=== PATIENT | male | born 1990 | race Caucasian/White ===

== ENCOUNTER 2020-03-02 03:54 | Emergency (ER) | payer OTHER ==
[2020-03-02 04:02] VITALS: TEMP 98.8
[2020-03-02] MEDS ORDERED: SODIUM CHLORIDE 0.9% 1,000 ML IV STA (04:07)
[2020-03-02] MEDS ORDERED: DIPH,PERTUS(ACELL)TETVAC-LF 0.5 ML VIAL IM ONE (04:07)
[2020-03-02 04:26] LABS: Basophils # (A) 0.1 k/uL (0-0.2); Basophils % (A) 1 %; Eosinophils # (A) 0.3 k/uL (0-0.7); Eosinophils % (A) 2 %; HCT 46.5 % (39.0-53.0); HGB 15.9 gm/dL (13.0-17.5); Lymphocytes # (A) 1.4 k/uL (1.0-4.8); Lymphocytes % (A) 9 %; MCH 30.6 pg (25.0-35.0); MCHC 34.3 g/dL (31.0-37.0); MCV 89.2 fL (80.0-100.0); Monocytes # (A) 0.5 k/uL (0-1.0); Monocytes % (A) 3 %; Neutrophils # (A) 13.4 k/uL (1.3-7.7); Neutrophils % (A) 85 %; Platelet Count 395 k/uL (150-450); RBC 5.21 m/uL (4.30-5.90); RDW 12.1 % (11.5-15.5); WBC 15.9 k/uL (3.8-10.6)
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
[2020-03-02 04:30] LABS: INR 0.9 (<1.2); Partial Thromboplastin Time 23.1 sec (22.0-30.0); Prothrombin Time 9.9 sec (9.0-12.0)
[2020-03-02 04:31] LABS: ALT 60 U/L (4-49); AST 46 U/L (17-59); African American GFR (CKD) >90 (>60 ml/min/1.73 sqM); Albumin 5.4 g/dL (3.5-5.0); Alkaline Phosphatase 98 U/L (38-126); Anion Gap 14 mmol/L; Blood Urea Nitrogen 11 mg/dL (9-20); Calcium 9.6 mg/dL (8.4-10.2); Carbon Dioxide 22 mmol/L (22-30); Chloride 106 mmol/L (98-107); Glucose 115 mg/dL (74-99); Non-African American GFR(CKD) 79 (>60 ml/min/1.73 sqM); Sodium 142 mmol/L (137-145); Total Bilirubin 0.5 mg/dL (0.2-1.3); Total Protein 8.8 g/dL (6.3-8.2)
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
--- NOTE | 2020-03-02 04:44 | XR ---
EXAMINATION TYPE: XR pelvis AP view DATE OF EXAM: 03/02/2020 COMPARISON: NONE HISTORY: Pain TECHNIQUE: Single view FINDINGS: Pelvic ring is intact. Proximal femurs and hip joints are intact. Sacroiliac joints appear normal. IMPRESSION: Negative pelvis x-ray exam.
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
[2020-03-02 04:48] LABS: Alcohol 204 mg/dL
[2020-03-02] MEDS ORDERED: MORPHINE SULFATE 4 MG/ML SYRINGE IVP STA (04:58)
[2020-03-02 07:11] VITALS: BP 117/69; PULSE 89; RESP 16
== END 2020-03-02 06:45 | disposition other institution (70) ==
LOC: EC 03:54
DX: S02.19XA Other fracture of base of skull, initial encounter for closed fracture (principal); S43.085A Other dislocation of left shoulder joint, initial encounter; S01.301A Unspecified open wound of right ear, initial encounter; M79.89 Other specified soft tissue disorders; F10.129 Alcohol abuse with intoxication, unspecified; F17.200 Nicotine dependence, unspecified, uncomplicated; Y04.2XXA Assault by strike against or bumped into by another person, initial encounter; Y90.7 Blood alcohol level of 200-239 mg/100 ml
CPT/HCPCS: 36415; 80053; 85025; 85610; 85730; 72170; 71045; 72125; 70486; 70450; 90715; 99291; 96365; 96375; 96361; 90471; 23650; G0480; J2270; J0690; 80320

== ENCOUNTER 2020-03-11 10:03 | Emergency (ER) | payer OTHER ==
[2020-03-11 10:11] VITALS: TEMP 97.8
[2020-03-11] MEDS ORDERED: MORPHINE SULFATE 4 MG/ML SYRINGE IM STA (10:36)
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
[2020-03-11] MEDS ORDERED: ONDANSETRON 4 MG/2 ML VIAL IVP STA ×2 (11:06→12:06)
--- NOTE | 2020-03-11 11:10 | XR ---
EXAMINATION TYPE: XR shoulder complete LT DATE OF EXAM: 03/11/2020 COMPARISON: NONE HISTORY: Pain TECHNIQUE: Three views are submitted. FINDINGS: The osseous structures are intact. There is anterior dislocation of the humeral head. IMPRESSION: 1. Anterior dislocation of the humeral head.
[2020-03-11] MEDS ORDERED: PROPOFOL 10 MG/ML 20 ML VIAL IV ONE (11:33)
[2020-03-11] MEDS ORDERED: LORazepam 2 MG/ML INJ IV STA (11:41)
[2020-03-11] MEDS ORDERED: SODIUM CHLORIDE 0.9% 1,000 ML IV ONE (11:41)
[2020-03-11] MEDS ORDERED: SODIUM CHLORIDE 0.9% 1,000 ML IV SCH (11:45)
[2020-03-11] MEDS ORDERED: ETOMIDATE 2 MG/ML 10 ML VIAL IVP STA (12:31)
--- NOTE | 2020-03-11 12:59 | XR ---
EXAMINATION TYPE: XR shoulder limited LT DATE OF EXAM: 03/11/2020 CLINICAL HISTORY: Left shoulder dislocation today. TECHNIQUE: Single view of left shoulder is obtained after reduction. COMPARISON: Left shoulder x-ray earlier today. FINDINGS: There is improved alignment of humeral head relative to glenoid cavity after reduction. No acute fracture is seen. Visualized ribs are intact. IMPRESSION: Interval successful reduction of anterior humeral head dislocation.
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
[2020-03-11 13:52] VITALS: BP 131/104; PULSE 84; RESP 18
== END 2020-03-11 14:00 | disposition home or self-care (01) ==
LOC: EC 10:03
DX: M24.412 Recurrent dislocation, left shoulder (principal); Z87.891 Personal history of nicotine dependence
CPT/HCPCS: 73030; 73020; 99284; 99152; 23650; 96374; 96375; 96361; 96372; J2060; J2270; J2405; J2704